=== PATIENT | male | born 1960 | race Caucasian/White ===

== ENCOUNTER 2016-10-30 09:45 | Emergency (ER) | payer MEDICAID, OTHER ==
[2016-10-30 09:49] VITALS: BP 133/77; PULSE 104; RESP 16; TEMP 97.7; O2SAT 95
[2016-10-30] MEDS ORDERED: IBUPROFEN 200 MG TAB PO ONE ×2 (10:07→10:18)
--- NOTE | 2016-10-30 10:11 | EDPHY ---
H & P Stated Complaint: leg/foot pain for 1 wk blisters Time Seen by Provider: 10/30/16 10:01 HPI/ROS: CHIEF COMPLAINT: Bilateral foot pain HISTORY OF PRESENT ILLNESS: The patient is a 56-year-old homeless alcoholic man who comes to the emergency department complaining of bilateral foot pain and blistering. He also complains of ankle swelling. He has had the symptoms for months. He states that he has been doing a lot of walking trying to find a job. He was put on a water pill by people's which has helped to some degree. He has not had any fevers. He has not suffered any trauma. He has been trying to keep his socks dry but does not have any to change. REVIEW OF SYSTEMS: Constitutional: denies: chills, fever, recent illness, recent injury EENTM: denies: blurred vision, double vision, nose congestion Respiratory: denies: cough, shortness of breath Cardiac: denies: chest pain, irregular heart rate, lightheadedness, palpitations Gastrointestinal/Abdominal: denies: abdominal pain, diarrhea, nausea, vomiting, blood streaked stools Genitourinary: denies: dysuria, frequency, hematuria, pain Musculoskeletal: denies: joint pain, muscle pain Skin: See HPI Neurological: denies: headache, numbness, paresthesia, tingling, dizziness, weakness Hematologic/Lymphatic: denies: blood clots, easy bleeding, easy bruising Immunologic/allergic: denies: HIV/AIDS, transplant EXAM: GENERAL: Well-appearing, well-nourished and in no acute distress. HEAD: Atraumatic, normocephalic. EYES: Pupils equal round and reactive to light, extraocular movements intact, sclera anicteric, conjunctiva are normal. ENT: TMs normal, nares patent, oropharynx clear without exudates. Moist mucous membranes. NECK: Normal range of motion, supple without lymphadenopathy or JVD. LUNGS: Breath sounds clear to auscultation bilaterally and equal. No wheezes rales or rhonchi. HEART: Regular rate and rhythm without murmurs, rubs or gallops. ABDOMEN: Soft, nontender, normoactive bowel sounds. No guarding, no rebound. No masses appreciated. BACK: No CVA tenderness, no spinal tenderness, step-offs or deformities EXTREMITIES: Normal range of motion, mild edema bilateral lower extremities, erythematous soles of feet with blistering, no sign of cellulitis or wound infection. NEUROLOGICAL: Cranial nerves II through XII grossly intact. Normal speech, normal gait. 5/5 strength, normal movement in all extremities, normal sensation PSYCH: Normal mood, normal affect. SKIN: Warm, dry, normal turgor, no visible rashes or lesions. Source: Patient Exam Limitations: No limitations - Personal History Current Tetanus/Diphtheria Vaccine: Yes Current Tetanus Diphtheria and Acellular Pertussis (TDAP): Yes - Medical/Surgical History Hx Asthma: No Hx Chronic Respiratory Disease: Yes Hx Diabetes: No Hx Cardiac Disease: No Hx Renal Disease: No Hx Cirrhosis: No Hx Alcoholism: Yes Hx HIV/AIDS: No Hx Splenectomy or Spleen Trauma: No Other PMH: emphysema, hep c. hernia repair, tonsillectomy, cyst removal from knee - Family History Significant Family History: Hypertension - Social History Smoking Status: Former smoker Alcohol Use: Heavy Drug Use: Marijuana Constitutional: Initial Vital Signs Temperature (C) 36.5 C 10/30/16 09:47 Heart Rate 104 H 10/30/16 09:47 Respiratory Rate 16 10/30/16 09:47 Blood Pressure 133/77 H 10/30/16 09:47 O2 Sat (%) 95 10/30/16 09:47 Allergies/Adverse Reactions: No Known Allergies Allergy (Verified 01/03/16 01:06) Home Medications: Medication Instructions Recorded Docusate Sodium [Colace 100 MG (*)] 100 mg PO TID #20 cap 10/11/15 Hydrocodone/APAP 5/325 [[place] 1 - 2 tab PO Q4-6PRN PRN #14 tab 10/11/15 5/325 (*)] Cyclobenzaprine [Flexeril 10 MG 10 mg PO TID PRN #15 tab 01/03/16 (*)] Medical Decision Making ED Course/Re-evaluation: Patient is a homeless alcoholic man with likely liver failure lower extremity edema in trench foot. He is being treated for the edema by his primary care physician. We discussed treatment for trench foot. I have given him several pairs of dry socks. I have encouraged him to rest his feet and elevate them. We discussed indications for returning. Additional verbal discharge instructions given. Differential Diagnosis: Partial list of the Differential diagnosis considered include but were not limited to; trench foot, blister, burn, liver failure, cirrhosis and although unlikely based on the history and physical exam, I also considered wound infection, abscess. I discussed these differential diagnoses and the plan with the patient as well as the usual and expected course. The patient understands that the diagnosis is provisional and that in medicine we are not always correct and that further workup is often warranted. Usual and customary warnings were given. All of the patient's questions were answered. The patient was instructed to return to the emergency department should the symptoms at all worsen or return, otherwise to followup with the physician as we discussed. - Data Points Medications Given: Discontinued Medications Ibuprofen (Motrin) 800 mg PO EDNOW ONE Stop: 10/30/16 10:08 Last Admin: 10/30/16 10:23 Dose: 800 mg Departure - Departure Disposition: Home, Routine, Self-Care Clinical Impression: Trench feet Qualifiers: Encounter type: initial encounter Laterality: unspecified laterality Qualifier Code: (T69.029A) Immersion foot, unspecified foot, initial encounter Condition: Fair Instructions: Blister (ED) Additional Instructions: Continue to change out dry socks. Attempt to do less walking and more elevation of your feet. Continue to take the fluid pills prescribed by your primary. Follow up with him in the next few days. Return here if her symptoms worsen or if he develops a fever as we discussed. Referrals: IN STATE,. [Primary Care Provider] - As per Instructions [facility] [Outside] - As per Instructions
== END 2016-10-30 10:20 | disposition home or self-care (01) ==
DX: T69.021A Immersion foot, right foot, initial encounter (principal); T69.022A Immersion foot, left foot, initial encounter; Z87.891 Personal history of nicotine dependence; X31.XXXA Exposure to excessive natural cold, initial encounter

== ENCOUNTER 2016-11-07 06:21 | Emergency (ER) | payer MEDICAID ==
[2016-11-07 06:32] VITALS: RESP 16
[2016-11-07] MEDS ORDERED: fentaNYL 100 MCG/2 ML INJ ONE (06:34)
--- NOTE | 2016-11-07 06:40 | EDPHY ---
HPI/HX/ROS/PE/MDM Narrative: Chief complaint: Abdominal pain HPI: 56-year-old male with a known umbilical hernia states that his hernia bulge out this morning and has caused him increasing pain. He has a history of having his hernia become incarcerated in the past but it has reduced on its own today he attempted to reduce with pressure but has had increasing pain. This has been going on for the last several hours. No fevers or chills. No nausea or vomiting. Has not have a history of any abdominal surgeries in the past. Has not had hernias repaired. Denies other medical history at this time. EMS gave the patient 100 mcg of fentanyl with some relief. ROS: 10 point Review of Systems is negative except as noted in the HPI. Physical exam: Gen: Awake, Alert, uncomfortable appearing HEENT: Nose: no rhinorrhea Eyes: PERRLA, EOMI Mouth: Moist mucosa Neck: Supple, no JVD Chest: nontender, lungs clear to auscultation Heart: S1, S2 normal, no murmur Abd: patient has a incarcerated umbilical hernia on physical examination, abdomen is otherwise soft, no focal guarding Back: no CVA tenderness, no midline tenderness Ext: no edema, non-tender Skin: no rash Neuro: CN II-XII intact, Sensation grossly intact, Strength 5/5 in bilateral upper and lower extremities ED Course: Patient's umbilical hernia was easily reduced under gentle constant pressure. On reexamination is abdomen is soft and benign. He has been instructed on how to reduce it should it become incarcerated again. I will also refer him to General surgery as an outpatient for consultation for hernia repair. He is otherwise a soft benign abdomen in pain resolved with reduction. General Initial Vital Signs: Initial Vital Signs Temperature (C) 37.0 C 11/07/16 06:29 Heart Rate 80 11/07/16 06:29 Respiratory Rate 16 11/07/16 06:29 Blood Pressure 142/95 H 11/07/16 06:29 O2 Sat (%) 86 L 11/07/16 06:29 O2 Delivery Mode Nasal Cannula O2 (L/minute) 2 Allergies/Adverse Reactions: No Known Allergies Allergy (Verified 01/03/16 01:06) Home Medications: Medication Instructions Recorded NK [No Known Home Meds] 11/07/16 Departure - Departure Disposition: Home, Routine, Self-Care Clinical Impression: Umbilical hernia Condition: Good Instructions: Umbilical Hernia (ED) Additional Instructions: Follow up with general surgeon in a week or so in follow-up for consultation for hernia repair. Return to the emergency department for increasing abdominal pain, nausea, vomiting, fevers, chills, or any other concerns. Referrals: IN STATE,. [Primary Care Provider] - As per Instructions Evin Reilly MD [Medical Doctor] - As per Instructions
[2016-11-07 08:52] VITALS: BP 127/87; PULSE 86; TEMP 98.1; O2SAT 92
[2016-11-09] MEDS ORDERED: MIDAZOLAM 2 MG/2 ML VIAL ONE (08:35)
== END 2016-11-07 08:50 | disposition home or self-care (01) ==
LOC: EDUNIT#
DX: K42.9 Umbilical hernia without obstruction or gangrene (principal)
CPT/HCPCS: J2250; J3010

== ENCOUNTER 2016-11-07 10:44 | Inpatient (IN) | payer MEDICAID ==
[2016-11-07] MEDS ORDERED: LR 1,000 ML IV ONE (11:42)
[2016-11-07] MEDS ORDERED: CEFAZOLIN 2 GM/DEXTROSE/100 ML BAG IV ONE (12:16)
[2016-11-07] MEDS ORDERED: ceFAZolin 2 GM/DEXTROSE 100 ML IV ONE (12:30)
--- NOTE | 2016-11-07 12:37 | GHP ---
[f rep st] PREOP HISTORY AND PHYSICAL CHIEF COMPLAINT: Umbilical hernia. HISTORY OF PRESENT ILLNESS: This patient is a 56-year-old man who presented to the emergency room this morning with a chief complaint of an incarcerated umbilical hernia with severe abdominal pain. He has had the hernia for several years. However, in June, he was helping a friend lift a heavy object and felt a rip. Since that time, the hernia has increased in size, and he has had more discomfort with it. This morning he was on the bus and the hernia was unable to be reduced and he developed severe pain. He then got off the bus and called an ambulance. In the emergency room, they were able to reduce the hernia with gentle pressure. He denies any fevers, chills, nausea, vomiting, change in bowel habits. He is passing flatus. He last ate a candy bar this morning at 4 a.m. He denies any skin changes over lying the hernia. PAST MEDICAL HISTORY: None. PAST SURGICAL HISTORY: Bilateral open inguinal hernia repairs with mesh. MEDICATIONS: Ibuprofen p.r.n. ALLERGIES: No known drug allergies. SOCIAL HISTORY: He reports occasional alcohol consumption. He chews tobacco very rarely. He denies recreational drug use. He does rign-ve-[id number] heavy lifting for work. FAMILY HISTORY: None significant. REVIEW OF SYSTEMS: A 10-point review of systems negative aside from the HPI. PHYSICAL EXAMINATION: GENERAL: Well-developed well-nourished man in no acute distress. HEENT: Normocephalic, atraumatic. No hearing deficits. Pupils equal and round. No scleral icterus. Mucous membranes moist. NECK: Trachea midline. RESPIRATORY: Clear to auscultation bilaterally. No increased work of breathing. CARDIOVASCULAR: Regular rate and rhythm. No peripheral edema. ABDOMEN: Normoactive bowel sounds throughout. Soft, nondistended. Nontender aside from directly over the umbilical hernia. There is an umbilical hernia, which is reducible when supine. It is tender to palpation. No skin changes. PSYCHIATRIC: Mood and affect normal. IMPRESSION AND PLAN: The patient is a 56-year-old man with an incarcerated umbilical hernia. We discussed open repair with mesh. We discussed risks of surgery including but not limited to heart attack, stroke, blood clots, . We discussed risk of infection, bleeding, damage to surrounding structures, or recurrence. He understands the risks and would like to proceed. He will receive Ancef on-call to the operating room. He had his questions answered to his satisfaction. Additionally seen by Dr. Kelly Loyola. I saw and examined Mr. Block. Although hernia has been present, it is tender. He is in a high risk living situation. Will admit to repair /[id number]/MODL MTDD
[2016-11-07] MEDS ORDERED: BUPIVACAINE 0.5% 30 ML SDV ONE (12:39)
[2016-11-07] MEDS ORDERED: ONDANSETRON 4 MG/2 ML VIAL IVP PRN (16:30)
[2016-11-07] MEDS ORDERED: ONDANSETRON DISINTEGRATING 4 MG TAB PO PRN (16:30)
[2016-11-07] MEDS ORDERED: ACETAMINOPHEN 325 MG TAB PO PRN (16:30)
--- NOTE | 2016-11-07 17:15 | CPEKG ---
Heart Rate: 82 RR Interval: 732 P-R Interval: 156 QRSD Interval: 78 QT Interval: 400 QTC Interval: 468 P Frederica: 48 QRS Frederica: 24 T Wave Frederica: 4 EKG Severity - BORDERLINE ECG - EKG Impression: SINUS RHYTHM EKG Impression: BORDERLINE R WAVE PROGRESSION, ANTERIOR LEADS EKG Impression: BORDERLINE T ABNORMALITIES, INFERIOR LEADS Electronically Signed By: Javier Piña 07-Nov-2016 17:42:17
--- NOTE | 2016-11-07 17:24 | GHP ---
[f rep st] HISTORY AND PHYSICAL DATE OF ADMISSION: 11/07/2016 CHIEF COMPLAINT: Abdominal pain. HISTORY OF PRESENT ILLNESS: The patient is a 56-year-old man who is followed at [facility]. He comes in to the emergency room with abdominal pain. He said that this morning at his umbilicus, tomy wilkes pooched out. He could not push it back in, and it was extremely painful so he came to the [facility] department. They were able to eventually push it back in and scheduled him to follow up at Dr. Loyola's office. She opted to bring him in for surgical repair; however, Anesthesia noted a holosyst olic murmur and wanted further evaluation prior to surgery. The patient denies any significant medical history. He said he has had a heart murmur for as long as he can remember, at least 20 or 30 years he was first told of it. He believes he had an echo in 200 6 and has not had a repeat echo. He denies any chest pain, although he does get some dyspnea on exer tion and cannot run because of it. He is able to walk 5-6 miles daily since he is homeless, and is n ot significantly limited by breathing when doing this. He denies any syncope. He does get occasiona l light-headedness and has for years; it is very infrequent. He is able to walk up a flight of stair s with his heavy backpack without any shortness of breath or chest pain. He denies any headache, vis ion, hearing, speech, or swallowing problems. He denies any urinary or bowel changes. He does get v mago occasionally lower extremity edema. He was seen in the emergency department about a week ago bec ause of this, and was felt secondary to poor foot care. REVIEW OF SYSTEMS: A 10-point review of systems was done and is negative except as stated in the HPI . PAST MEDICAL HISTORY: Heart murmur. PAST SURGICAL HISTORY: Bilateral hernia repair. MEDICATIONS: Occasional ibuprofen. ALLERGIES: No known drug allergies. SOCIAL HISTORY: He lives in a fpc at this time. He has been homeless for a couple months since he broke up with his girlfriend. He walks 5-6 miles a day because of this. He has a significant tob acco history of 35 years but quit a few years ago. He drinks 3-4 drinks/beers 3-4 times a week. FAMILY HISTORY: Parents are both ; he cannot tell me why they . PHYSICAL EXAMINATION: VITAL SIGNS: Afebrile. Heart rate 88, blood pressure 147/74, respirations 14 , and he is 93% on room air. GENERAL: He is a very pleasant 56-year-old man. He is in no distress. He is alert and oriented. Speech is clear and fluent. HEENT: Pupils equal, round, and reactive. Extraocular movements intact. Mucous membranes moist. Oropharynx clear. NECK: Supple. No adenopa thy. HEART: Regular rate and rhythm. He has a holosystolic murmur radiating to left carotid artery . LUNGS: Clear bilaterally. No wheezes or rhonchi, but diminished breath sounds throughout. ABDOM EN: Slightly protuberant. He has an umbilical hernia noted with some tenderness at the site; he is able to reduce it. EXTREMITIES: No significant pitting edema bilaterally. MUSCULOSKELETAL: No antonia nt deformities or effusions. No muscle atrophy. SKIN: No rash. NEUROLOGIC: He is intact. LABORATORY DATA: None. ASSESSMENT AND PLAN: 56-year-old man admitted for incarcerated hernia repair, found to have a signif icant murmur and needs further medical evaluation prior to surgery. 1. Heart murmur. Patient with minimal exertional symptoms, although he does have some dyspnea on ex ertion. It is unclear if this is due to his heart, but more likely due to his prolonged smoking use. Plan: Check echocardiogram, check EKG, check chest x-ray, and check baseline labs. After those st udies are done can re-evaluate the data for risk stratification. Clinically he is in relatively good shape. He could do 4 METS without symptoms. 2. Umbilical hernia, per General Surgery. Can proceed after above studies are done and reviewed. 3. Alcohol use. Patient has moderate alcohol use, drinking 3-4 beers 3-4 times a week. He denies a ny history of withdrawal symptoms. Will monitor for this. 4. History of tobacco use, at least 35 years; although, he has quit. He has been diagnosed with emp hysema in the past. Will start him on DuoNeb and check a chest x-ray. 5. Homelessness. Patient likely will be an OR followup candidate so will need to stay in the hospit al until this can be done. Copy requested to: [facility] /[id number]/MODL
[2016-11-07 17:46] LABS: % IMMATURE GRANULYOCYTES 0.3 % (0.0-1.1); ABSOLUTE IMMATURE GRANULOCYTES 0.01 10^3/uL (0.00-0.10); ADD DIFF? NO; ADD MORPH? NO; ADD SCAN? NO; ATYPICAL LYMPHOCYTE FLAG 10 (0-99); FRAGMENT RBC FLAG 0 (0-99); HEMATOCRIT 39.9 % (40.0-51.0); LEFT SHIFT FLG 0 (0-99); LIPEMIA HEMOLYSIS FLAG 90 (0-99); MEAN CELL HEMOGLOBIN 36.4 pg (27.9-34.1); MEAN CELL HEMOGLOBIN CONCENTR. 35.1 g/dL (32.4-36.7); MEAN CELL VOLUME 103.6 fL (81.5-99.8); MEAN PLATELET VOLUME 10.6 fL (8.7-11.7); PLATELET CLUMPS FLAG 0 (0-99); PLATELET COUNT 52 10^3/uL (150-400); RED BLOOD CELL COUNT 3.85 10^6/uL (4.40-6.38); RED CELL DISTRIBUTION WIDTH 14.9 % (11.5-15.2)
[2016-11-07 18:08] LABS: ALANINE AMINOTRANSFERASE 57 IU/L (21-72); ALBUMIN 3.1 g/dL (3.5-5.0); ALKALINE PHOSPHATASE 166 IU/L (38-126); ANION GAP 8 mEq/L (8-16); ASPARTATE AMINOTRANSFERASE 71 IU/L (17-59); BILIRUBIN,TOTAL 2.1 mg/dL (0.1-1.4); CALCIUM 8.2 mg/dL (8.5-10.4); CARBON DIOXIDE 24 mEq/l (22-31); CHLORIDE 108 mEq/L (97-110); CREATININE 0.6 mg/dL (0.7-1.3); GLOMERULAR FILTRATION RATE > 60; GLUCOSE 80 mg/dL (70-100); POTASSIUM 3.7 mEq/L (3.5-5.2); SODIUM 140 mEq/L (134-144); TOTAL PROTEIN 7.1 g/dL (6.3-8.2)
--- NOTE | 2016-11-07 18:28 | DX ---
PA and Lateral Chest - November 07, 2016 Clinical Indications: Heart murmur. Shortness of breath. Comparison: October 11, 2015. Findings: The lungs are clear, and no masses are found. The heart and pulmonary vessels are normal. There are no pleural effusions and no pneumothorax. The bones are unremarkable for this age. An ol d left 11th rib fracture is present. Impression: No acute cardiopulmonary process.
[2016-11-07 18:30] LABS: INR 1.48 (0.83-1.16); PROTIME(PATIENT) 17.9 SEC (12.0-15.0)
[2016-11-07 18:48] LABS: BILIRUBIN-CONJUGATED 0.8 mg/dL (0.0-0.5); BILIRUBIN-UNCONJUGATED 1.3 mg/dL (0.0-1.1)
[2016-11-07] MEDS: HYDROCODONE/APAP 5/325 TAB PO PRN (22:24)
[2016-11-07] MEDS: IPRATROPIUM/ALBUTEROL 3 ML DEYVIAL IH SCH (23:03)
[2016-11-08] MEDS: IPRATROPIUM/ALBUTEROL 3 ML DEYVIAL IH SCH ×4 (05:41→20:19)
--- NOTE | 2016-11-08 08:26 | HOSPPROG ---
Hospitalist Progress Note Assessment/Plan: #Moderate -TTE showed moderate with mean valvular stenosis AV max 49mmHg, AV mean 29mmHg -asymptomatic, no e/o volume overload or arrhythmia #Umbilical hernia -Dr. Loyola to do surgery tomorrow #Alcohol abuse: last drink Sunday. Monitor with withdrawal #Likely underlying COPD: PRN nebs #DVT px: low-risk, ambulatory #Diet: NPO at MN Subjective: No CP, SOB. Objective: Vital Signs Temp Pulse Resp BP Pulse Ox 36.9 C 100 18 135/75 H 94 11/08/16 04:00 11/08/16 04:00 11/08/16 04:00 11/08/16 04:00 11/08/16 04:00 Laboratory Results 11/07/16 17:30 11/07/16 17:30 11/07/16 11/08/16 11/09/16 05:59 05:59 05:59 Intake Total 100 Balance 100 PT 17.9 SEC (12.0-15.0) H 11/07/16 17:30 INR 1.48 (0.83-1.16) H 11/07/16 17:30 - Physical Exam Constitutional: no apparent distress Eyes: PERRL Ears, Nose, Mouth, Throat: moist mucous membranes, hearing normal Cardiovascular: regular rate and rhythym, systolic murmur (3/6 heard throughout precordium), edema (no edema) Respiratory: no respiratory distress Gastrointestinal: normoactive bowel sounds Genitourinary: no bladder fullness Skin: warm Musculoskeletal: full muscle strength Neurologic: AAOx3 ICD10 Worksheet Patient Problems: Problems Problem Status Diagnosed Aortic stenosis due to bicuspid aortic valve Acute - ICD10 Problem Qualifiers (1) Aortic stenosis due to bicuspid aortic valve
--- NOTE | 2016-11-08 10:51 | ECHO ---
[id number] + + [address] : : [place] [address] : : [phone] + + Adult Echocardiographic Report + + :Name: JOE GOODWIN MStudy Date: 11/08/2016 09:33 AM : : Hospital Admission Number: [id number] Loc ation: 379: :: 1960 Gender: Male : :Age: 56 yrs Race: WH : :Reason For Study: Heart murmur/pre op : + + MMode/2D Measurements & Calculations IVSd: 0.74 cm LVIDd: 4.7 cm FS: 48.7 % Ao root diam: LVPWd: 0.98 cm LVIDs: 2.4 cm EDV(Teich): 4.0 cm 101.4 ml LA dimension: ESV(Teich): 20.2 ml3.9 cm EF(Teich): 80.1 % LVOT diam: 2.4 cmLVLd ap4: 9.5 cm SV(MOD-sp4): LVOT area: EDV(MOD-sp4): 85.0 ml 117.0 ml 4.4 cm2 LVLs ap4: 6.9 cm ESV(MOD-sp4): 32.0 ml EF(MOD-sp4): 72.6 % Normal Measurement Values: + + :LVIDd (3.5-5.7cm) IVSd (0.6-1.1cm) LVPWd (0.6-1.1cm) Aortic Root (2.0-3.7cm)Left Atrium (1.5-4.0cm): :LV Vol(d) (76-115ml) LV Vol(s) (29-48ml) Ejec Fraction (50-65%)PV Pietro (0.6- 1.2m/s) TV Pietro (0.4-1.0m/s) : :MV E Pietro (0.8-1.0m/s)MV A Pietro (0.3-1.0m/s)LVOT Pietro (0.7-1.2m/s) Asc Ao Pietro ( 0.9-1.8m/s) : + + Doppler Measurements & Calculations MV E max pietro: Ao mean PG: LV V1 max: SV(LVOT): 93.8 cm/sec 31.9 mmHg 108.6 cm/sec 109.1 ml MV A max pietro: Ao V2 mean: LV V1 max P.1 cm/sec 272.9 cm/sec 4.7 mmHg MV E/A: 1.3 Ao V2 VTI: 82.6 cm LV V1 mean PG: FREDA(I,D): 1.3 cm2 2.7 mmHg LV V1 mean: 76.2 cm/sec LV V1 VTI: 25.0 cm TR max pietro: 278.3 cm/sec TR max P.0 mmHg RAP systole: 5.0 mmHg RVSP(TR): 36.0 mmHg Left Ventricle The left ventricle is normal in size. There is normal left ventricular wall thickness. The left ventricle is hyperdynamic. Ejection Fraction = 75-80%. No regional wall motion abnormalities noted. Right Ventricle The right ventricle is normal in size and function. Atria The left atrium is mildly dilated. Right atrial size is normal. The interatrial septum is intact with no evidence for an atrial septal defect. Mitral Valve The mitral valve is normal in structure and function. There is no evidence of mitral valve prolapse. There is no mitral valve stenosis. There is mild mitral regurgitation. Tricuspid Valve Normal tricuspid valve. There is mild tricuspid regurgitation. Right ventricular systolic pressure is normal. Aortic Valve The aortic valve is bicuspid. Moderate valvular aortic stenosis. AV max PG is 49mmHG. AV mean PG is 29mmHG. Pulmonic Valve The pulmonic valve is normal in structure and function. There is no pulmonic valvular regurgitation. Great Vessels The aortic root is normal size. Borderline dilated ascending aorta. Pericardium/Pleural There is no pericardial effusion. Conclusion A complete two-dimensional transthoracic echocardiogram was performed (2D, M-mode, Doppler and color flow Doppler). The left ventricle is hyperdynamic. Ejection Fraction = 75-80%. The left atrium is mildly dilated. There is mild mitral regurgitation. There is mild tricuspid regurgitation. Right ventricular systolic pressure is normal. The aortic valve is bicuspid. Moderate valvular aortic stenosis. AV max PG is 49mmHG. AV mean PG is 29mmHG. Borderline dilated ascending aorta. Final Reading Physician: Katy Cornell signed on 11/08/2016 10:50 AM Ordering Physician: Mitzy Gerard Performed By: Rosanne Aguilar RDCS
[2016-11-08] MEDS: HYDROCODONE/APAP 5/325 TAB PO PRN (15:14)
[2016-11-09] MEDS: IPRATROPIUM/ALBUTEROL 3 ML DEYVIAL IH SCH ×4 (05:10→21:21)
[2016-11-09 07:48] LABS: ADD DIFF? NO; ADD MORPH? NO; ADD SCAN? NO; ATYPICAL LYMPHOCYTE FLAG 30 (0-99); FRAGMENT RBC FLAG 0 (0-99); HEMATOCRIT 37.4 % (40.0-51.0); LEFT SHIFT FLG 0 (0-99); LIPEMIA HEMOLYSIS FLAG 90 (0-99); MEAN CELL HEMOGLOBIN 36.1 pg (27.9-34.1); MEAN CELL HEMOGLOBIN CONCENTR. 34.8 g/dL (32.4-36.7); MEAN CELL VOLUME 103.9 fL (81.5-99.8); PLATELET CLUMPS FLAG 0 (0-99); RED CELL DISTRIBUTION WIDTH 14.9 % (11.5-15.2)
[2016-11-09 07:51] LABS: PLATELET COUNT 44 10^3/uL (150-400)
[2016-11-09] MEDS ORDERED: BUPIVACAINE 0.5% 30 ML SDV ONE (07:57)
[2016-11-09 08:00] LABS: INR 1.47 (0.83-1.16); PROTIME(PATIENT) 17.8 SEC (12.0-15.0)
[2016-11-09] MEDS ORDERED: ceFAZolin 2 GM in NS 100 ML IV ONE (08:00)
[2016-11-09] MEDS ORDERED: ceFAZolin 2 GM/DEXTROSE 100 ML IV ONE (08:00)
[2016-11-09 08:02] LABS: ALANINE AMINOTRANSFERASE 52 IU/L (21-72); ALBUMIN 2.7 g/dL (3.5-5.0); ALKALINE PHOSPHATASE 145 IU/L (38-126); ANION GAP 7 mEq/L (8-16); ASPARTATE AMINOTRANSFERASE 61 IU/L (17-59); BILIRUBIN,TOTAL 1.8 mg/dL (0.1-1.4); BILIRUBIN-CONJUGATED 0.5 mg/dL (0.0-0.5); BILIRUBIN-UNCONJUGATED 1.3 mg/dL (0.0-1.1); CALCIUM 8.1 mg/dL (8.5-10.4); CARBON DIOXIDE 23 mEq/l (22-31); CHLORIDE 108 mEq/L (97-110); CREATININE 0.7 mg/dL (0.7-1.3); GLOMERULAR FILTRATION RATE > 60; GLUCOSE 97 mg/dL (70-100); POTASSIUM 3.9 mEq/L (3.5-5.2); SODIUM 138 mEq/L (134-144); TOTAL PROTEIN 6.4 g/dL (6.3-8.2)
[2016-11-09 08:34] LABS: PLATELET ESTIMATE DECREASED (ADEQ)
[2016-11-09] MEDS ORDERED: PROPOFOL 200 MG/20 ML VIAL ONE (08:42)
[2016-11-09] MEDS ORDERED: fentaNYL 100 MCG/2 ML INJ ONE ×2 (08:42→09:08)
[2016-11-09] MEDS ORDERED: LIDOCAINE 1% 5 ML SDV ONE (08:45)
[2016-11-09] MEDS ORDERED: LIDOCAINE 2% 5 ML SDV ONE (08:49)
[2016-11-09] MEDS ORDERED: GLYCOPYRROLATE 0.2 MG/1 ML VIAL ONE (08:51)
[2016-11-09] MEDS ORDERED: METOCLOPRAMIDE 10 MG/2 ML VIAL ONE (08:51)
[2016-11-09] MEDS ORDERED: PHENYLEPHRINE HCL 100 MCG/ML SYR ONE (09:02)
[2016-11-09] MEDS ORDERED: ONDANSETRON 4 MG/2 ML VIAL ONE (09:10)
[2016-11-09] MEDS ORDERED: DEXAMETHASONE 4 MG/ML VIAL ONE (09:10)
[2016-11-09] MEDS ORDERED: HYDROmorphONE/DILAUDID 2 MG/ML SYR ONE (09:14)
--- NOTE | 2016-11-09 09:36 | POSTOPPROG ---
Post Op Note Date of Operation: 11/09/16 Surgeon: Kelly Loyola Anesthesiologist: robina Anesthesia: GET(General Endotracheal) Pre-op Diagnosis: incarcerated umbilical hernia Post-op Diagnosis: same Indication: 56 yo with incarcerated umbilical hernia Procedure: umbilical hernia repair with mesh Findings: incarcerated omentum Inf/Abcess present in the surg proc area at time of surgery?: No EBL: Minimal Specimen(s): none
--- NOTE | 2016-11-09 11:30 | GOP ---
[f rep st] OPERATIVE REPORT DATE OF OPERATION: 11/09/2016 SURGEON: Kelly Loyola MD ANESTHESIA: Dr. Boone Baptiste/general. PREOPERATIVE DIAGNOSIS: Incarcerated umbilical hernia. POSTOPERATIVE DIAGNOSIS: Incarcerated umbilical hernia. PROCEDURE PERFORMED: Umbilical hernia repair with mesh. FINDINGS: incarcerated umbilical hernia SPECIMENS: None. ESTIMATED BLOOD LOSS: 10 cc. INDICATIONS: Panda is a 56-year-old who presented with an umbilical hernia. DESCRIPTION OF PROCEDURE: Panda was brought into the operating room, placed supine on the table, and general anesthesia was administered. His abdomen was prepped and draped in the usual sterile fashion. I infiltrated the area with 0.5% Marcaine prior to making incisions. I made an incision beneath his umbilicus. I came around the umbilical stalk with a hemostat. I detached it from the fascia with electrocautery. I reduced the incarcerated omentum back into the peritoneal cavity. I sutured the defect closed which was approximately 2 cm with 0 Surgilon. I placed a piece of Procrit mesh and tacked this down with 0 Surgilon. Neoumbilicus was recreated with 3-0 Vicryl. Skin was closed with 3-0 Vicryl, followed by 4-0 Monocryl. Mastisol, Steri- Strips, cotton ball, and a dressing were applied. He was awakened in the operating room, extubated, transferred to PACU in stable condition. /[id number]/MODL MTDD
--- NOTE | 2016-11-09 13:07 | HOSPPROG ---
Hospitalist Progress Note Assessment/Plan: #Moderate -TTE showed moderate with mean valvular stenosis AV max 49mmHg, AV mean 29mmHg -asymptomatic, no e/o volume overload or arrhythmia. -did well with the surgery #Umbilical hernia -underwent umbilical repair with mesh today without complications #Alcohol abuse: last drink Sunday. Monitor with withdrawal #Likely underlying COPD: PRN nebs #DVT px: low-risk, ambulatory #Diet: ADAT #Disp: if doing well, likely DC tomorrow Subjective: abdomen pain much improved after the surgery Objective: Vital Signs Temp Pulse Resp BP Pulse Ox 36.6 C 96 16 103/73 90 L 11/09/16 12:00 11/09/16 12:00 11/09/16 12:00 11/09/16 12:00 11/09/16 12:00 Laboratory Results 11/09/16 07:41 11/09/16 07:41 11/08/16 11/09/16 11/10/16 05:59 05:59 05:59 Intake Total 431 045 6472 Output Total 10 Balance 894 174 6361 PT 17.8 SEC (12.0-15.0) H 11/09/16 07:41 INR 1.47 (0.83-1.16) H 11/09/16 07:41 - Physical Exam Constitutional: no apparent distress Eyes: PERRL Ears, Nose, Mouth, Throat: moist mucous membranes, hearing normal Cardiovascular: regular rate and rhythym, no murmur, rub, or gallop Respiratory: no respiratory distress, no rales or rhonchi Gastrointestinal: normoactive bowel sounds, other (umbilicus dressed C/D/I. No TTP. +BS) Musculoskeletal: full muscle strength Neurologic: AAOx3 Psychiatric: interacting appropriately ICD10 Worksheet Patient Problems: Problems Problem Status Diagnosed Aortic stenosis due to bicuspid aortic valve Acute - ICD10 Problem Qualifiers (1) Aortic stenosis due to bicuspid aortic valve
[2016-11-09 22:59] VITALS: RESP 18
[2016-11-10 04:43] VITALS: O2SAT 90
[2016-11-10] MEDS: IPRATROPIUM/ALBUTEROL 3 ML DEYVIAL IH SCH ×2 (05:51→10:57)
[2016-11-10 08:19] VITALS: BP 128/83; PULSE 101; TEMP 98.1
[2016-11-10] MEDS: HYDROCODONE/APAP 5/325 TAB PO PRN (08:48)
--- NOTE | 2016-11-10 09:11 | SOAPPROG ---
SOAP Progress Note Assessment/Plan: Assessment: POD#1 s/p umbilical hernia repair with mesh Increased pain this morning but had not received PO pain meds OK to shower today Regular diet Dispo: d/c to [facility] per hospitalists. OK to go from surgery standpoint. F/u 2 weeks S: increased pain this morning. eating well. O: laying in bed, NAD No increased WOB Abd soft, nondistended, +BS. minimal erythema superior to umbilicus, tender to palpation at site of surgery NO evidence of active infection Objective: Vital Signs Temp Pulse Resp BP Pulse Ox 36.7 C 101 H 18 128/83 H 90 L 11/10/16 08:00 11/10/16 08:00 11/10/16 08:00 11/10/16 08:00 11/10/16 08:00 Laboratory Results 11/09/16 07:41 11/09/16 07:41 11/09/16 11/10/16 11/11/16 05:59 05:59 05:59 Intake Total 600 1100 Output Total 10 Balance 600 1090 PT 17.8 SEC (12.0-15.0) H 11/09/16 07:41 INR 1.47 (0.83-1.16) H 11/09/16 07:41 ICD10 Worksheet Patient Problems: Problems Problem Status Diagnosed Aortic stenosis due to bicuspid aortic valve Acute
[2016-11-10] MEDS ORDERED: PNEUMOCOCCAL 0.5ML VACCINE VIAL IM ONE (11:30)
[2016-11-10] MEDS ORDERED: FLU VACC QS 2016-17(3-64YR)/PF 0.5 ML SYR (FLUARIX QUAD) IM ONE (11:30)
--- NOTE | 2016-11-11 03:26 | GDS ---
[f rep st] DISCHARGE SUMMARY DISCHARGE DIAGNOSIS: Moderate aortic stenosis. NEW DIAGNOSES: 1. Suspected emphysema secondary to smoking. 2. Umbilical hernia status post repair. 3. Alcohol abuse without withdrawal. 4. Homelessness. HISTORY OF PRESENT ILLNESS: This is a 56-year-old male presenting for surgery to his inguinal hernia found to have a murmur and admitted for evaluation and surgical intervention. For details of mark salas's initial presentation, please see the history and physical dated 11/07/2016. Consultative services include Dr. Smith. PROCEDURES: On 11/09/2016 patient had umbilical hernia repair. On 11/07/2016 patient had a transtho racic echocardiogram, which shows a bicuspid aortic valve with moderate aortic stenosis. HOSPITAL COURSE: 1. Incarcerated inguinal hernia. Patient was brought and cleared for surgery and taken to the opera ting room successfully. The patient has minimal pain on the day of disposition and is being provided oral pain medications to follow with Dr. Smith in the next 7-10 days. 2. Suspected COPD. Patient has an extensive smoking history, and required intermittent oxygen durin g his hospital stays, being discharged with Combivent inhaler and outpatient followup with [facility]. 3. Moderate aortic stenosis. The patient had his valves visualized on transthoracic echocardiogram. We recommend that he have non-emergent followup at [facility] for long-term management of his va lvular disease. DISCHARGE MEDICATIONS: Please reference medication reconciliation printed on 11/10/2016. FOLLOWUP: 1. Followup appointments for this patient include with Dr. Smith in 7-10 days for postop followup. 2. With [facility] for ongoing management of his suspected emphysema. 3. With [facility]. Long-term for monitoring of his moderate aortic stenosis. I spent greater than 30 minutes in the planning and coordination of this discharge. /[id number]/MODL
== END 2016-11-10 13:47 | disposition home or self-care (01) | DRG 354 ==
LOC: FSGY 10:44 → F3E 14:03 → OBSVTOIN 16:32
PROVIDERS: ADMIT Internal Medicine; ATTEND Internal Medicine
PROC: 0WUF0JZ Supplement Abdominal Wall with Synthetic Substitute, Open Approach (ICD-10-PCS; principal; 2016-11-09 08:30)
DX: K42.9 Umbilical hernia without obstruction or gangrene (principal); F10.239 Alcohol dependence with withdrawal, unspecified; R01.1 Cardiac murmur, unspecified; J43.9 Emphysema, unspecified; I35.0 Nonrheumatic aortic (valve) stenosis; Z87.891 Personal history of nicotine dependence; Z23 Encounter for immunization; Z66 Do not resuscitate
CPT/HCPCS: C1781; G0008; G0009; J0690; J1100; J1170; J2250; J2370; J2405; J2704; J2765; J3010

== ENCOUNTER 2016-12-06 17:48 | Emergency (ER) | payer MEDICAID ==
--- NOTE | 2016-12-06 18:08 | EDPHY ---
H & P - Medical/Surgical History Hx Asthma: No Hx Chronic Respiratory Disease: Yes Hx Diabetes: No Hx Cardiac Disease: Yes Hx Renal Disease: No Hx Cirrhosis: No Hx Alcoholism: Yes Hx HIV/AIDS: No Hx Splenectomy or Spleen Trauma: No Other PMH: emphysema, hep c, heart murmur (to be seen by [facility]), hernia repair, tonsillectomy, cyst removal from knee - Social History Smoking Status: Current some day smoker Time Seen by Provider: 12/06/16 17:53 HPI/ROS: CHIEF COMPLAINT: Suicidal and homicidal ideation HISTORY OF PRESENT ILLNESS: 56-year-old male arrives via ambulance after being placed on an M1 hold by the mental health prosthetic makeup designer [facility] after he endorsed suicidal ideation and homicidal ideations . Per the M1 report , he called the state crisis line stated if he had a gun he would kill his ex- and her boyfriend and also door suicidal ideation. In talking to the patient he states I was just kidding. He denies alcohol or drug use. He denies suicidal homicidal ideation when I interview him. Denies acute injury or complaints of pain. Denies abdominal pain. Denies dyspnea. Denies chest pain. REVIEW OF SYSTEMS: A ten point review of systems was performed and is negative with the exception of the items mentioned in the HPI PAST MEDICAL & SURGICAL HISTORY: History of emphysema. SOCIAL HISTORY: homeless PHYSICAL EXAM (Prior to examination, patient consented to physical exam, hands were washed and my usual and customary physical exam procedures followed) 1) GENERAL: alert and oriented. agitated 2) HEAD: Normocephalic, atraumatic 3) HEENT: Pupils equal, round, reactive to light bilaterally. Sclera anicteric. 4) NECK: Full range of motion, no meningeal signs. 5) LUNGS: Clear auscultation bilaterally, no wheezes, no rhonchi, no retractions. 6) HEART: Regular rate and rhythm, no murmur, no heave, no gallop. 7) ABDOMEN: No guarding, no rebound, no focal tendernes, 8) MUSCULOSKELETAL: no signs of trauma or injury No peripheral edema or discoloration. 9) BACK: No CVA tenderness,. 10) SKIN: No rash, no petechiae. 11) Psychiatric: Patient is oriented X 3, he is agitated DIFFERENTIAL DIAGNOSIS: in no particular include but limited to depression, suicidal ideation, homicidal ideation (Abhishek Ballard) Constitutional: Initial Vital Signs Temperature (C) 36.6 C 12/06/16 17:53 Heart Rate 103 H 12/06/16 17:53 Respiratory Rate 18 12/06/16 17:53 Blood Pressure 140/93 H 12/06/16 17:53 O2 Sat (%) 96 12/06/16 17:53 O2 Delivery Mode Room Air Allergies/Adverse Reactions: No Known Allergies Allergy (Verified 01/03/16 01:06) Home Medications: Medication Instructions Recorded Ibuprofen [Motrin (*)] 200 mg PO DAILY PRN 11/07/16 Hydrocodone/APAP 5/325 [[place] 1 - 2 tab PO Q4HRS PRN #30 tab 11/10/16 5/325 (*)] Ipratropium/Albuterol [Combivent 1 inh IH QID #1 mdi 11/10/16 Respimat Inhal [place](*)] Medical Decision Making ED Course/Re-evaluation: 11:45 p.m.: Re-evaluation with serial exams. breathalyzer lcohol is 108 at this time. care the patient turned over to . Patient will need to sober further until can be evaluated by mental health prosthetic makeup designer for his prior suicidal and homicidal statements. (Abhishek Ballard Agnes) 6:45 a.m.- The patient has remained stable throughout my shift. His his repeat breathalyzer was 0.03. He is now medically clear. He should be monitored for alcohol withdrawal. The case will be signed out to the oncoming provider Dr. Figueroa pending mental health evaluation. (Sara Mcgee) 0700 Care assumed by me from Dr. Mcgee pending MH evaluation. 1200 patient has been seen by the mental health evaluations. Patient is now sober. He is not suicidal. He is not homicidal. He is genevieve for safety. He agrees with the plan to follow up with [facility] as an outpatient. Mental health hold has been lifted by me at 11:59 a.m.. Patient will be discharged per the mental health plan. (González Figueroa) - Data Points Laboratory Results: Laboratory Results 12/06/16 18:38 12/06/16 18:38 Departure - Departure Disposition: Home, Routine, Self-Care Clinical Impression: Suicidal ideation Alcoholic intoxication Qualifiers: Complication of substance-induced condition: uncomplicated Qualifier Code: ( F10.120) Alcohol abuse with intoxication, uncomplicated Condition: Good Instructions: Alcohol Intoxication (ED), Depression (ED) Additional Instructions: Follow up with [facility] for further care for her depression. Return emergency department for increasing suicidal thoughts, worsening depression, hallucinations, or any other concerns. Referrals: IN STATE,. [Primary Care Provider] - As per Instructions [facility] [Outside] - As per Instructions
[2016-12-06 18:48] LABS: % IMMATURE GRANULYOCYTES 0.2 % (0.0-1.1); ABSOLUTE IMMATURE GRANULOCYTES 0.01 10^3/uL (0.00-0.10); ADD DIFF? NO; ADD MORPH? NO; ADD SCAN? NO; ATYPICAL LYMPHOCYTE FLAG 20 (0-99); FRAGMENT RBC FLAG 0 (0-99); HEMATOCRIT 43.1 % (40.0-51.0); HEMOGLOBIN 15.3 g/dL (13.7-17.5); LEFT SHIFT FLG 0 (0-99); LIPEMIA HEMOLYSIS FLAG 90 (0-99); MEAN CELL HEMOGLOBIN 35.3 pg (27.9-34.1); MEAN CELL HEMOGLOBIN CONCENTR. 35.5 g/dL (32.4-36.7); MEAN CELL VOLUME 99.3 fL (81.5-99.8); MEAN PLATELET VOLUME 11.2 fL (8.7-11.7); PLATELET CLUMPS FLAG 10 (0-99); RED BLOOD CELL COUNT 4.34 10^6/uL (4.40-6.38)
[2016-12-06 18:55] LABS: PLATELET COUNT 45 10^3/uL (150-400)
[2016-12-06 19:10] LABS: PLATELET ESTIMATE DECREASED (ADEQ)
[2016-12-06 19:13] LABS: ANION GAP 12 mEq/L (8-16); CALCIUM 8.2 mg/dL (8.5-10.4); CARBON DIOXIDE 24 mEq/l (22-31); CHLORIDE 108 mEq/L (97-110); CREATININE 0.6 mg/dL (0.7-1.3); ETHANOL SERUM 212 mg/dL (0-10); GLOMERULAR FILTRATION RATE > 60; GLUCOSE 111 mg/dL (70-100); POTASSIUM 3.5 mEq/L (3.5-5.2); SODIUM 144 mEq/L (134-144)
[2016-12-07 00:37] VITALS: RESP 16
[2016-12-07] MEDS ORDERED: SODIUM CL NASAL 45 ML BTL EACHNARE PRN (07:46)
[2016-12-07 12:27] VITALS: BP 122/79; PULSE 70; TEMP 97.9; O2SAT 96
== END 2016-12-07 12:26 | disposition home or self-care (01) ==
LOC: EDUNIT#
DX: R45.851 Suicidal ideations (principal); F10.120 Alcohol abuse with intoxication, uncomplicated; F17.200 Nicotine dependence, unspecified, uncomplicated
CPT/HCPCS: 80305; G0480

== ENCOUNTER 2017-02-25 17:10 | Emergency (ER) | payer MEDICAID ==
[2017-02-25 17:17] VITALS: RESP 16
--- NOTE | 2017-02-25 17:21 | EDPHY ---
H & P Smoking Status: Current some day smoker Time Seen by Provider: 02/25/17 17:18 HPI/ROS: CHIEF COMPLAINT: Mechanical fall, right hip pain HISTORY OF PRESENT ILLNESS: 56-year-old male presents to the emergency department by ambulance complaining of isolated pain in his right hip. Patient states just prior to arrival he was walking outside and tripped on the curb and fell on his right lateral hip. He did not hit his head or lose consciousness. He denies abdominal pain. Denies headache. Complains of isolated pain to the right hip. He did try to get up to walk and he had pain associated with this. Denies symptoms in the left hip. Denies pain in his right knee or right ankle. REVIEW OF SYSTEMS: Constitutional: No fever, no chills. Eyes: No double or blurry vision. ENT: No sore throat. Respiratory: No cough, no shortness of breath. Cardiac: No chest pain. Gastrointestinal: No abdominal pain, vomiting or diarrhea. Genitourinary: No dysuria. Musculoskeletal: No neck or back pain. Skin: No rashes. Neurological: No headache. (Laila Bedoya) Past Medical/Surgical History: Alcoholism, hepatitis-C, cirrhosis, ascites with recent paracentesis 3 weeks ago , chews tobacco, COPD (Laila Bedoya) Social History: Single, homeless (Laila Bedoya) Physical Exam: General Appearance: Alert, no distress. No visible signs of trauma to his head. Mentating normally and answering questions appropriately. Eyes: Pupils equal and round. Extraocular motions are all intact. ENT: Mouth: Mucous membranes moist. Respiratory: No wheezing, rhonchi, or rales, lungs are clear to auscultation. Cardiovascular: Regular rate and rhythm. Gastrointestinal: Abdomen is soft and distended. Patient has chronic ascites. Nontender to palpate. No palpable masses. No CVA tenderness bilaterally. Neurological: Alert and oriented x 3, cranial nerves II through XII grossly intact Skin: Warm and dry, no rashes. Musculoskeletal: Nontender to palpate along the cervical, thoracic or lumbar spine. Neck is supple. Extremities: Patient has reproducible pain with palpation to the lateral aspect of the right hip. No palpable crepitus or other bony abnormality. He has no pain with internal or external rotation of the hip. He is able to lift his right leg off the bed, however this does cause some mild pain. He is able to flex his right knee. No abrasion. No puncture wound. Nontender to palpate the right knee or right ankle. Psychiatric: Patient is oriented X 3, there is no agitation. (Laila Bedoya) Constitutional: Initial Vital Signs Temperature (C) 36.8 C 02/25/17 17:15 Heart Rate 98 02/25/17 17:15 Respiratory Rate 16 02/25/17 17:15 Blood Pressure 139/86 H 02/25/17 17:15 O2 Sat (%) 90 L 02/25/17 17:15 O2 Delivery Mode Room Air Allergies/Adverse Reactions: No Known Allergies Allergy (Verified 01/03/16 01:06) Home Medications: Medication Instructions Recorded NK [No Known Home Meds] 02/25/17 Medical Decision Making - Diagnostics Imaging: I viewed and interpreted images myself - Diagnostics Imaging Results: X-rays of the right hip and pelvis reveal no fractures. This is reviewed by myself the PAC system. Radiology interpretation to follow. (Laila Bedoya) ED Course/Re-evaluation: 56-year-old male presents to the emergency department with right hip pain after mechanical fall. The patient has a history of alcoholism, hepatitis-C, cirrhosis and ascites. He had a paracentesis 3 weeks ago. Patient denies abdominal pain. He has no pain with palpation. X-rays of the right hip reveal no fractures. The patient was able to ambulate with out assistance. Patient has ETOH breath of 235. He will be discharged to the addiction recovery [facility]. (Laila Bedoya) Differential Diagnosis: Including but not limited to fracture, dislocation, contusion, sprain (Laila Bedoya) Other Provider: PHYSICIAN DOCUMENTATION: The patient was evaluated and managed by the Physician Sales Inspector and myself. I have reviewed the chart and agree with the findings and plan of care as documented. In addition, I examined the patient myself at 1753. History confirmed as fall today with right hip injury. Physical findings as follows: No pain with axial loading or rotation of the right hip. I am the secondary supervising physician. (Alexander Goode) - Data Points Medications Given: Discontinued Medications Chlordiazepoxide (Librium 25 Mg Prepack#6) 1 btl TAKEHOME EDNOW ONE Stop: 02/25/17 17:55 Last Admin: 02/25/17 18:01 Dose: 1 btl Departure - Departure Disposition: Home, Routine, Self-Care Clinical Impression: Contusion of right hip Qualifiers: Encounter type: initial encounter Qualified Code(s): S70.01XA - Contusion of right hip, initial encounter Alcohol intoxication Qualifiers: Complication of substance-induced condition: uncomplicated Qualified Code(s): F10.120 - Alcohol abuse with intoxication, uncomplicated Condition: Good Instructions: Chlordiazepoxide (By mouth), Alcohol Intoxication (ED), Hip Contusion (ED) Additional Instructions: Weightbear and activity as tolerated. Ibuprofen 400mg every 8 hours for pain as directed for 2-3 days. Return if you develop numbness or tingling in your toes, increasing pain or any other concerns. Referrals: [facility] [Outside] - As per Instructions Dusty Askew MD [Medical Doctor] - 5-7 days, call for appt. (Orthopedic surgeon on-call)
[2017-02-25] MEDS ORDERED: CHLORDIAZEPOXIDE 25MG PREPK#6 BTL TAKEHOME ONE (17:54)
[2017-02-25 18:20] VITALS: BP 133/77; PULSE 70; TEMP 97.9; O2SAT 96
== END 2017-02-25 18:17 | disposition home or self-care (01) ==
LOC: EDUNIT#
DX: S70.01XA Contusion of right hip, initial encounter (principal); F10.120 Alcohol abuse with intoxication, uncomplicated; J44.9 Chronic obstructive pulmonary disease, unspecified; F17.200 Nicotine dependence, unspecified, uncomplicated; W01.0XXA Fall on same level from slipping, tripping and stumbling without subsequent striking against object, initial encounter; Y99.8 Other external cause status; Y93.01 Activity, walking, marching and hiking

== ENCOUNTER 2017-03-09 13:14 | Emergency (ER) | payer MEDICAID ==
--- NOTE | 2017-03-09 13:37 | EDPHY ---
H & P Time Seen by Provider: 03/09/17 13:24 HPI/ROS: CHIEF COMPLAINT: Knee pain HISTORY OF PRESENT ILLNESS: This is a 56-year-old gentleman that was sent to the emergency department by the [facility] for right knee pain. Patient states he is there voluntarily, tripped last night landing on his right knee patient reports increased pain with ambulation. Denies any other complaints. Tetanus up-to- date November 2016. Patient [facility] for [facility] withdrawal, denies any withdrawal symptoms at this time, last drink 24 oz beer was 1 hour ago his normal intake of alcohol is 12-24 beers daily. REVIEW OF SYSTEMS: Constitutional: No fever, no chills. Eyes: No discharge. ENT: No sore throat. Cardiovascular: No chest pain, no palpitations. Respiratory: No cough, no shortness of breath. Gastrointestinal: No abdominal pain, no vomiting, no vomiting Genitourinary: No hematuria. Musculoskeletal: No back pain. right knee pain Skin: No rashes. Neurological: No headache. Smoking Status: Current some day smoker Physical Exam: General Appearance: Alert, no distress. Eyes: Pupils equal and round no pallor or injection. ENT, Mouth: Mucous membranes moist. Respiratory: There are no retractions, lungs are clear to auscultation. Cardiovascular: Regular rate and rhythm. Gastrointestinal: Abdomen is soft and nontender, no masses, bowel sounds normal. Neurological: No focal deficits. Ambulatory with steady gait Skin: Warm and dry, no rashes. Musculoskeletal: Neck is supple nontender. Abrasion noted to right knee, tender on palpation with some swelling, tenderness with range of full range of motion. No obvious deformity noted Extremities: symmetrical, full range of motion. Non tremulous and no fasciculations Psychiatric: Patient is oriented X 3, there is no agitation. Constitutional: Initial Vital Signs Temperature (C) 36.4 C 03/09/17 13:19 Heart Rate 95 03/09/17 13:19 Respiratory Rate 20 03/09/17 13:19 Blood Pressure 123/82 H 03/09/17 13:19 O2 Sat (%) 94 03/09/17 13:19 O2 Delivery Mode Room Air Allergies/Adverse Reactions: No Known Allergies Allergy (Verified 03/09/17 13:18) Home Medications: Medication Instructions Recorded Lasix 03/09/17 Spironolactone 03/09/17 Medical Decision Making - Diagnostics Imaging Results: Imaging Impressions Knee X-Ray 03/09/17 13:37 Impression: Soft tissue swelling. No acute fracture or effusion. ED Course/Re-evaluation: Discussed the plan of care: X-ray of right knee, wound irrigation 1430: No acute fracture seen on x-ray. Discussed results with patient. Patient discharged back to the [facility] with Librium. Stable Differential Diagnosis: Other differential diagnosis considered but not limited to patellar fracture, patellar dislocation and laceration - Data Points Medications Given: Discontinued Medications Chlordiazepoxide (Librium 25 Mg Prepack#6) 1 btl TAKEHOME EDNOW ONE Stop: 03/09/17 14:40 Last Admin: 03/09/17 14:58 Dose: 1 btl Departure - Departure Disposition: Home, Routine, Self-Care Clinical Impression: Knee pain Qualifiers: Laterality: right Chronicity: acute Qualified Code(s): M25.561 - Pain in right knee Condition: Good Instructions: Abrasion (ED), Knee Pain (ED) Additional Instructions: Discussed discharge instructions 1. The keep wound clean and dry 2. Librium has been sent with patien. Patient back to [facility] Referrals: Gloria Goddard PA [Primary Care Provider] - As per Instructions
[2017-03-09] MEDS ORDERED: CHLORDIAZEPOXIDE 25MG PREPK#6 BTL TAKEHOME ONE (14:39)
[2017-03-09 14:58] VITALS: BP 128/78; PULSE 70; RESP 14; TEMP 98.4; O2SAT 96
== END 2017-03-09 14:58 | disposition home or self-care (01) ==
DX: M25.561 Pain in right knee (principal); F17.200 Nicotine dependence, unspecified, uncomplicated

== ENCOUNTER 2017-06-14 11:48 | Inpatient (IN) | payer MEDICAID ==
--- NOTE | 2017-06-14 12:50 | EDPHY ---
HPI/HX/ROS/PE/MDM Narrative: CHIEF COMPLAINT: Chest pain, Dyspnea HPI: The patient is a 56-year-old male who complains of dyspnea and chest pain that started this morning. The patient reports a tight sensation in his chest. He is having difficulty with deep inhalation. Patient has a history of pneumonia and states symptoms feel similar. He denies cough or fever. REVIEW OF SYSTEMS: Aside from elements discussed in the HPI, a comprehensive 10-point review of systems was reviewed and is negative. PMH: Emphysema, Hepatitis C, Heart murmur, Hernia repair, Trench foot, Pneumonia. SOCIAL HISTORY: Cigarette smoker. Heavy alcohol use. Homeless. PHYSICAL EXAM: General: Patient is alert, in no acute distress. ENT: Eyes are normal to inspection. ENT inspection normal. Neck: Normal inspection. Full range of motion. Respiratory: No respiratory distress. Breath sounds normal bilaterally. Cardiovascular: Regular rate and rhythm. Strong peripheral pulses. 4/6 systolic murmur. Abdomen: The abdomen is nontender to palpation. There are no peritoneal signs. There are normal bowel sounds. Back: Normal to inspection. No tenderness to palpation. Skin: Normal color. No rash. Warm and dry. Extremities: Normal appearance. Full range of motion. 1+ pedal edema bilaterally. Neuro: Oriented x3. Normal motor function. Normal sensory function. ED Course: Patient presents with chest pain and shortness of breath. The patient has pneumonia 4 weeks ago and was hospitalized at [place]. His chest x-ray today shows left sided pneumonia. Patient is slightly hypoxic. 1:30 p.m.: I spoke to the hospitalist, Dr. Oliveira, who accepts the patient for admission. MDM: This patient presents with signs and symptoms of PNA, confirmed by CXR. Given patient's homeless status, hypoxia and recent inpatient stay for pneumonia only one month ago, I think the patient would benefit from an observation admit and IV antibiotics. The patient has a normal lactate, so I see no signs of septic shock or severe sepsis at this point. - Data Points Imaging Results: Imaging Impressions Chest X-Ray 06/14/17 11:56 Impression: Left lower lung pneumonia. Imaging: Discussed imaging studies w/ train caller Radiologist, I viewed and interpreted images myself Laboratory Results: Laboratory Results 06/14/17 11:45 06/14/17 11:45 06/14/17 06/14/17 11:45 11:45 WBC 2.97 10^3/uL L 10^3/uL (3.80-9.50) RBC 3.69 10^6/uL L 10^6/uL (4.40-6.38) Hgb 13.1 g/dL L g/dL (13.7-17.5) Hct 37.6 % L % (40.0-51.0) MCV 101.9 fL H fL (81.5-99.8) MCH 35.5 pg H pg (27.9-34.1) MCHC 34.8 g/dL g/dL (32.4-36.7) RDW 14.0 % % (11.5-15.2) Plt Count 35 10^3/uL L 10^3/uL (150-400) MPV 10.9 fL fL (8.7-11.7) Neut % (Auto) 61.7 % % (39.3-74.2) Lymph % (Auto) 26.6 % % (15.0-45.0) Mcminn % (Auto) 8.4 % % (4.5-13.0) Eos % (Auto) 2.0 % % (0.6-7.6) Baso % (Auto) 1.0 % % (0.3-1.7) Nucleat RBC Rel Count 0.0 % % (0.0-0.2) Absolute Neuts (auto) 1.83 10^3/uL 10^3/uL (1.70-6.50) Absolute Lymphs (auto) 0.79 10^3/uL L 10^3/uL (1.00-3.00) Absolute Monos (auto) 0.25 10^3/uL L 10^3/uL (0.30-0.80) Absolute Eos (auto) 0.06 10^3/uL 10^3/uL (0.03-0.40) Absolute Basos (auto) 0.03 10^3/uL 10^3/uL (0.02-0.10) Absolute Nucleated RBC 0.00 10^3/uL 10^3/uL (0-0.01) Immature Gran % 0.3 % % (0.0-1.1) Immature Gran # 0.01 10^3/uL 10^3/uL (0.00-0.10) Platelet Estimate DECREASED L (ADEQ) Sodium 144 mEq/L mEq/L (134-144) Potassium 3.6 mEq/L mEq/L (3.5-5.2) Chloride 109 mEq/L mEq/L (97-110) Carbon Dioxide 24 mEq/l mEq/l (22-31) Anion Gap 11 mEq/L mEq/L (8-16) BUN 6 mg/dL L mg/dL (7-23) Creatinine 0.6 mg/dL L mg/dL (0.7-1.3) Estimated GFR > 60 Glucose 85 mg/dL mg/dL (70-100) Calcium 8.0 mg/dL L mg/dL (8.5-10.4) Total Bilirubin 1.9 mg/dL H mg/dL (0.1-1.4) AST 116 IU/L H IU/L (17-59) ALT 58 IU/L IU/L (21-72) Alkaline Phosphatase 148 IU/L H IU/L (38-126) Total Protein 7.2 g/dL g/dL (6.3-8.2) Albumin 3.2 g/dL L g/dL (3.5-5.0) Medications Given: Discontinued Medications Ceftriaxone Sodium/Dextrose (Rocephin 1 Gm (Premix)) 50 mls @ 100 mls/hr IV EDNOW ONE PRN Reason: Protocol Stop: 06/14/17 14:10 Last Admin: 06/14/17 14:29 Dose: 50 mls General Time Seen by Provider: 06/14/17 12:39 Initial Vital Signs: Initial Vital Signs Temperature (C) 36.7 C 06/14/17 11:57 Heart Rate 89 06/14/17 11:57 Respiratory Rate 20 06/14/17 11:57 Blood Pressure 125/85 H 06/14/17 11:57 O2 Sat (%) 92 06/14/17 11:57 O2 Delivery Mode Nasal Cannula O2 (L/minute) 2 Allergies/Adverse Reactions: No Known Allergies Allergy (Verified 03/09/17 13:18) Home Medications: Medication Instructions Recorded NK [No Known Home Meds] 06/14/17 Departure - Departure Disposition: [facility] Inpatient Acute Clinical Impression: Pneumonia Qualifiers: Pneumonia type: due to unspecified organism Laterality: left Lung location: lower lobe of lung Qualified Code(s): J18.1 - Lobar pneumonia, unspecified organism Condition: Fair Report Scribed for: Mikhail Dixon Report Scribed by: Arianna Johnson Date of Report: 06/14/17 Time of Report: 12:50 Physician Review and Approval Statement: Portions of this note were transcribed by a medical care administrator. I personally performed the history, physical exam, and medical decision-making; and confirmed the accuracy of the information in the transcribed note.
[2017-06-14 12:57] LABS: % IMMATURE GRANULYOCYTES 0.3 % (0.0-1.1); ABSOLUTE IMMATURE GRANULOCYTES 0.01 10^3/uL (0.00-0.10); ADD DIFF? NO; ADD MORPH? NO; ADD SCAN? NO; ATYPICAL LYMPHOCYTE FLAG 10 (0-99); FRAGMENT RBC FLAG 0 (0-99); HEMATOCRIT 37.6 % (40.0-51.0); HEMOGLOBIN 13.1 g/dL (13.7-17.5); LEFT SHIFT FLG 0 (0-99); LIPEMIA HEMOLYSIS FLAG 90 (0-99); MEAN CELL HEMOGLOBIN 35.5 pg (27.9-34.1); MEAN CELL HEMOGLOBIN CONCENTR. 34.8 g/dL (32.4-36.7); MEAN CELL VOLUME 101.9 fL (81.5-99.8); MEAN PLATELET VOLUME 10.9 fL (8.7-11.7); PLATELET CLUMPS FLAG 20 (0-99); RED BLOOD CELL COUNT 3.69 10^6/uL (4.40-6.38)
[2017-06-14 13:03] LABS: CARBON DIOXIDE 24 mEq/l (22-31); CHLORIDE 109 mEq/L (97-110); POTASSIUM 3.6 mEq/L (3.5-5.2); SODIUM 144 mEq/L (134-144)
[2017-06-14 13:04] LABS: ALANINE AMINOTRANSFERASE 58 IU/L (21-72); ALBUMIN 3.2 g/dL (3.5-5.0); ALKALINE PHOSPHATASE 148 IU/L (38-126); ANION GAP 11 mEq/L (8-16); ASPARTATE AMINOTRANSFERASE 116 IU/L (17-59); BILIRUBIN,TOTAL 1.9 mg/dL (0.1-1.4); CREATININE 0.6 mg/dL (0.7-1.3); GLOMERULAR FILTRATION RATE > 60; GLUCOSE 85 mg/dL (70-100); TOTAL PROTEIN 7.2 g/dL (6.3-8.2)
[2017-06-14 13:08] LABS: PLATELET COUNT 35 10^3/uL (150-400)
[2017-06-14 13:36] LABS: PLATELET ESTIMATE DECREASED (ADEQ)
[2017-06-14] MEDS ORDERED: ONDANSETRON 4 MG/2 ML VIAL IVP PRN (15:33)
[2017-06-14] MEDS ORDERED: ACETAMINOPHEN 325 MG TAB PO PRN (15:33)
[2017-06-14] MEDS ORDERED: ALBUTEROL 3 ML DEYVIAL IH PRN (15:33)
[2017-06-14] MEDS ORDERED: ONDANSETRON DISINTEGRATING 4 MG TAB PO PRN (15:33)
--- NOTE | 2017-06-14 15:55 | PDGENHP ---
History and Physical - Chief Complaint SOB, cough - History of Present Illness 56 yo male with h/o alcohol abuse and homelessness presents to ED with cough and SOB. He reports having been hospitalized at [facility] 3-4 weeks ago for PNA and was discharged on Doxycycline and another atbx. He completed the atbx course and felt things improved for a few days, but he then developed worsening SOB. He reports a cough at baseline, which is now productive. He denies fevers, but does endorse fevers during prior hospitalization at [facility]. Has some mild chest tightness. He smokes cigarettes occasionally. Drinks >6 beers per day. Endorses some mild etoh withdrawal, but denies seizure. Last drink 8/16 PM. No headaches, vision changes, abdominal pain, N/V, bowel or bladder symptoms. In the ED, CXR showed LLL PNA. Blood cultures were drawn and he was given IV Ceftriaxone. He is admitted for further management. History Information - Allergies/Home Medication List Allergies/Adverse Reactions: No Known Allergies Allergy (Verified 03/09/17 13:18) Home Medications: NK [No Known Home Meds] 06/14/17 [Last Taken Unknown] I have personally reviewed and updated: family history, medical history, social history, surgical history - Past Medical History COPD, liver disease Additional medical history: valvular heart disease, mod , mild MR, hepatitis C diagnosed in late , alcoholic liver disease, alcohol abuse, thrombocytopenia - Surgical History Reports: hernia repair - Family History Positive for: non-pertinent - Social History Smoking Status: Current some day smoker Tobacco Use: Cigarettes Alcohol Use: Other (at least a 6 pack of beer a day) Drug Use: None Additional social history: Homeless, works as a apprentice stylist, but doesn't make enough money to secure housing Review of Systems ROS: 10pt was reviewed & negative except for what was stated in HPI & below Physical Exam Temp Pulse Resp BP Pulse Ox 36.7 C 81 24 H 135/80 H 93 06/14/17 15:15 06/14/17 15:15 06/14/17 15:15 06/14/17 15:15 06/14/17 15:15 O2 (L/minute) 2 Constitutional: no apparent distress Eyes: PERRL Ears, Nose, Mouth, Throat: moist mucous membranes Cardiovascular: regular rate and rhythym, systolic murmur Respiratory: no respiratory distress, other (LLL crackles) Gastrointestinal: normoactive bowel sounds, other (mild RUQ TTP, no r/r/g, +BS) Skin: warm Musculoskeletal: full muscle strength Neurologic: AAOx3 Psychiatric: interacting appropriately Lab Data & Imaging Review 06/14/17 11:45 06/14/17 11:45 WBC 2.97 10^3/uL (3.80-9.50) L 06/14/17 11:45 RBC 3.69 10^6/uL (4.40-6.38) L 06/14/17 11:45 Hgb 13.1 g/dL (13.7-17.5) L 06/14/17 11:45 Hct 37.6 % (40.0-51.0) L 06/14/17 11:45 MCV 101.9 fL (81.5-99.8) H 06/14/17 11:45 MCH 35.5 pg (27.9-34.1) H 06/14/17 11:45 MCHC 34.8 g/dL (32.4-36.7) 06/14/17 11:45 RDW 14.0 % (11.5-15.2) 06/14/17 11:45 Plt Count 35 10^3/uL (150-400) L 06/14/17 11:45 MPV 10.9 fL (8.7-11.7) 06/14/17 11:45 Neut % (Auto) 61.7 % (39.3-74.2) 06/14/17 11:45 Lymph % (Auto) 26.6 % (15.0-45.0) 06/14/17 11:45 Pratt % (Auto) 8.4 % (4.5-13.0) 06/14/17 11:45 Eos % (Auto) 2.0 % (0.6-7.6) 06/14/17 11:45 Baso % (Auto) 1.0 % (0.3-1.7) 06/14/17 11:45 Nucleat RBC Rel Count 0.0 % (0.0-0.2) 06/14/17 11:45 Absolute Neuts (auto) 1.83 10^3/uL (1.70-6.50) 06/14/17 11:45 Absolute Lymphs (auto) 0.79 10^3/uL (1.00-3.00) L 06/14/17 11:45 Absolute Monos (auto) 0.25 10^3/uL (0.30-0.80) L 06/14/17 11:45 Absolute Eos (auto) 0.06 10^3/uL (0.03-0.40) 06/14/17 11:45 Absolute Basos (auto) 0.03 10^3/uL (0.02-0.10) 06/14/17 11:45 Absolute Nucleated RBC 0.00 10^3/uL (0-0.01) 06/14/17 11:45 Immature Gran % 0.3 % (0.0-1.1) 06/14/17 11:45 Immature Gran # 0.01 10^3/uL (0.00-0.10) 06/14/17 11:45 Platelet Estimate DECREASED (ADEQ) L 06/14/17 11:45 VBG Lactic Acid 1.6 mmol/L (0.7-2.1) 06/14/17 13:52 Sodium 144 mEq/L (134-144) 06/14/17 11:45 Potassium 3.6 mEq/L (3.5-5.2) 06/14/17 11:45 Chloride 109 mEq/L (97-110) 06/14/17 11:45 Carbon Dioxide 24 mEq/l (22-31) 06/14/17 11:45 Anion Gap 11 mEq/L (8-16) 06/14/17 11:45 BUN 6 mg/dL (7-23) L 06/14/17 11:45 Creatinine 0.6 mg/dL (0.7-1.3) L 06/14/17 11:45 Estimated GFR > 60 06/14/17 11:45 Glucose 85 mg/dL (70-100) 06/14/17 11:45 Calcium 8.0 mg/dL (8.5-10.4) L 06/14/17 11:45 Total Bilirubin 1.9 mg/dL (0.1-1.4) H 06/14/17 11:45 AST 116 IU/L (17-59) H 06/14/17 11:45 ALT 58 IU/L (21-72) 06/14/17 11:45 Alkaline Phosphatase 148 IU/L (38-126) H 06/14/17 11:45 Total Protein 7.2 g/dL (6.3-8.2) 06/14/17 11:45 Albumin 3.2 g/dL (3.5-5.0) L 06/14/17 11:45 Visualized and Interpreted Chest x-ray results: Yes Chest X-Ray results: infiltrate Assessment & Plan Assessment: Acute hypoxemic respiratory failure secondary to PNA and suspected underlying COPD - See below for PNA plan. Regarding COPD, pt states this has been diagnosed in the past, but he is not currently on any medications. Requiring 2 LPM here. -atbx as below -QID duonebs, prn albuterol nebs -no wheezing, no indication for steroids at this time -wean O2 as able Pneumonia (Acute) - LLL PNA on CXR, unclear if this represents residual dz from recent PNA diagnosed and treated at [facility] or if this is an incompletely treated PNA. He is afebrile. No e/o sepsis, lactate normal. BCx's pending. -Will treat for now with Ceftriaxone/Azithromycin -send PCT -send sputum culture -send urine pneumococcal and legionella Ags -obtain records from [facility] Alcohol abuse - +H/O withdrawal, but no seizures. Pt wishes to abstain from alcohol. -CIWA, prn bzd's for w/d symptoms Elevated LFT's - Alcoholic liver disease likely. He also has a h/o Hep C. LFT' s are not significantly changed from prior. No indication for immediate imaging. -consider u/s if LFT's on the rise or clinical condition changes, will defer for now -outpt f/u recommended Valvular heart disease - prior echo reviewed, mod noted, along with mild MR and TR. No e/o HF. -outpt f/u with [facility] Pancytopenia - Chronic, likely BM suppression from etoh. No e/o bleeding. -follow Homelessness - CM consult DVT PPLX - pharm contraindicated given low plts, SCD's Full code Dispo - obs
[2017-06-14] MEDS ORDERED: LORazepam 2 MG/ML INJ IVP PRN (16:01)
[2017-06-14] MEDS: AZITHROMYCIN IV 500 MG in D5W 250 ML IV SCH (16:08)
[2017-06-14] MEDS: IPRATROPIUM/ALBUTEROL 3 ML DEYVIAL IH SCH ×2 (17:17→21:43)
[2017-06-14] MEDS: LORazepam 1 MG TAB PO PRN (21:03)
[2017-06-15] MEDS: LORazepam 1 MG TAB PO PRN ×2 (04:59→21:57)
[2017-06-15 05:08] LABS: % IMMATURE GRANULYOCYTES 0.4 % (0.0-1.1); ABSOLUTE IMMATURE GRANULOCYTES 0.01 10^3/uL (0.00-0.10); ADD DIFF? NO; ADD MORPH? NO; ADD SCAN? NO; ATYPICAL LYMPHOCYTE FLAG 0 (0-99); FRAGMENT RBC FLAG 0 (0-99); HEMOGLOBIN 12.5 g/dL (13.7-17.5); LEFT SHIFT FLG 0 (0-99); LIPEMIA HEMOLYSIS FLAG 90 (0-99); MEAN CELL HEMOGLOBIN 35.5 pg (27.9-34.1); MEAN CELL HEMOGLOBIN CONCENTR. 34.7 g/dL (32.4-36.7); MEAN CELL VOLUME 102.3 fL (81.5-99.8); MEAN PLATELET VOLUME 10.8 fL (8.7-11.7); PLATELET CLUMPS FLAG 0 (0-99); RED BLOOD CELL COUNT 3.52 10^6/uL (4.40-6.38); RED CELL DISTRIBUTION WIDTH 13.8 % (11.5-15.2)
[2017-06-15 05:18] LABS: PLATELET COUNT 24 10^3/uL (150-400)
[2017-06-15 05:21] LABS: ALANINE AMINOTRANSFERASE 53 IU/L (21-72); ALBUMIN 2.8 g/dL (3.5-5.0); ALKALINE PHOSPHATASE 132 IU/L (38-126); ANION GAP 7 mEq/L (8-16); ASPARTATE AMINOTRANSFERASE 98 IU/L (17-59); BILIRUBIN,TOTAL 2.7 mg/dL (0.1-1.4); CALCIUM 8.1 mg/dL (8.5-10.4); CARBON DIOXIDE 25 mEq/l (22-31); CHLORIDE 105 mEq/L (97-110); CREATININE 0.6 mg/dL (0.7-1.3); GLOMERULAR FILTRATION RATE > 60; GLUCOSE 87 mg/dL (70-100); MAGNESIUM 1.6 mg/dL (1.6-2.3); POTASSIUM 3.7 mEq/L (3.5-5.2); SODIUM 137 mEq/L (134-144); TOTAL PROTEIN 6.6 g/dL (6.3-8.2)
[2017-06-15] MEDS: IPRATROPIUM/ALBUTEROL 3 ML DEYVIAL IH SCH ×4 (05:22→21:36)
[2017-06-15 05:28] LABS: BILIRUBIN-CONJUGATED 0.7 mg/dL (0.0-0.5)
[2017-06-15 05:37] LABS: PLATELET ESTIMATE DECREASED (ADEQ)
[2017-06-15] MEDS: FOLIC ACID 1 MG TAB PO SCH (09:07)
[2017-06-15] MEDS: MULTIVITAMINS 1 EACH TAB PO SCH (09:07)
[2017-06-15] MEDS: AZITHROMYCIN IV 500 MG in D5W 250 ML IV SCH (10:50)
--- NOTE | 2017-06-15 12:40 | HOSPPROG ---
Hospitalist Progress Note Assessment/Plan: 56y male with c/o SOB. First encounter, chart reviewed. D/W Dr Oliveira. Acute hypoxemic respiratory failure secondary to PNA and suspected underlying COPD - See below for PNA plan. Regarding COPD, pt states this has been diagnosed in the past, but he is not currently on any medications. -on RA now -atbx as below -QID duonebs, prn albuterol nebs -no wheezing, no indication for steroids at this time Pneumonia (Acute) - LLL PNA on CXR, unclear if this represents residual dz from recent PNA diagnosed and treated at [facility] or if this is an incompletely treated PNA. He is afebrile. No e/o sepsis, lactate normal. BCx's pending. -Will treat for now with Ceftriaxone/Azithromycin -send PCT -send sputum culture -send urine pneumococcal and legionella Ags -obtain records from [facility] Alcohol abuse - +H/O withdrawal, but no seizures. -CIWA, prn bzd's for w/d symptoms -will provide etoh if pt wishes to not go through withdrawl, D/W RN Elevated LFT's - Alcoholic liver disease likely. He also has a h/o Hep C. LFT' s are not significantly changed from prior. No indication for immediate imaging. -consider u/s if LFT's on the rise or clinical condition changes, will defer for now -outpt f/u recommended Valvular heart disease - prior echo reviewed, mod noted, along with mild MR and TR. No e/o HF. -outpt f/u with [facility] Pancytopenia - Chronic, likely BM suppression from etoh. No e/o bleeding. -follow Homelessness - CM consult DVT PPLX - pharm contraindicated given low plts, SCD's Full code Dispo - change to inpt status requires another night in hospital [place] in am if stable Subjective: Feeling tired. Feels a bit SOB. Objective: Vital Signs Temp Pulse Resp BP Pulse Ox 36.9 C 84 20 146/92 H 92 06/15/17 12:00 06/15/17 12:00 06/15/17 12:00 06/15/17 12:00 06/15/17 12:00 Laboratory Results 06/15/17 04:25 06/15/17 04:25 06/14/17 06/15/1706/16/17 05:59 05:59 05:59 Intake Total 350 Output Total 1100 Balance -750 - Physical Exam Constitutional: no apparent distress, appears nourished, not in pain Eyes: PERRL, anicteric sclera, EOMI Ears, Nose, Mouth, Throat: moist mucous membranes, hearing normal, ears appear normal Cardiovascular: regular rate and rhythym, No JVD, No edema Respiratory: no respiratory distress, no rales or rhonchi, reduced air movement Gastrointestinal: normoactive bowel sounds, No tenderness, No ascites Skin: warm, normal color, No erythema Musculoskeletal: normal joint ROM, no joint effusions, generalized weakness Neurologic: AAOx3 Psychiatric: not anxious, not encephalopathic, poor insight, poor judgement ICD10 Worksheet Patient Problems: Problems Problem Status Onset Alcoholic intoxication Acute Aortic stenosis due to bicuspid aortic valve Acute Pneumonia Acute
[2017-06-16 05:34] LABS: MAGNESIUM 1.7 mg/dL (1.6-2.3)
[2017-06-16] MEDS: IPRATROPIUM/ALBUTEROL 3 ML DEYVIAL IH SCH ×4 (06:27→21:10)
--- NOTE | 2017-06-16 08:41 | HOSPPROG ---
Hospitalist Progress Note Assessment/Plan: 56y male PMH Hep C in , BAV/mod , EtOH (6 beers daily), tobacco abuse, presents with c/o SOB/cough. Admitted at [facility] 3-4 weeks ago with similar complaints and diagnosed with pna then. Reports being d/c'd on Doxy +1 other abx. First encounter, chart reviewed. D/W Dr Andrea. CXR personally interpreted Acute hypoxemic respiratory failure secondary to PNA and suspected underlying COPD - See below for PNA plan. Regarding COPD, pt states this has been diagnosed in the past, but he is not currently on any medications. -on RA now with sat 93% -abx as below -QID duonebs, prn albuterol nebs -no wheezing, no indication for steroids at this time Pneumonia (Acute) - LLL PNA on CXR, unclear if this represents residual dz from recent PNA diagnosed and treated at [facility] or if this is an incompletely treated PNA. He is afebrile. No e/o sepsis, lactate normal. BCx's pending. -Will treat for now with Ceftriaxone/Azithromycin -PCT neg -await sputum culture -send urine pneumococcal and legionella Ags -obtain records from [facility] Alcohol abuse - +H/O withdrawal, but no seizures. -CIWA, prn bzd's for w/d symptoms -will provide etoh if pt wishes to not go through withdrawal, D/W RN Elevated LFT's - Alcoholic liver disease likely. He also has a h/o Hep C. LFT' s are not significantly changed from prior. No indication for immediate imaging. -consider u/s if LFT's on the rise or clinical condition changes, will defer for now -outpt f/u recommended Valvular heart disease with BAV/ - no s/o CHF, angina, or syncope -outpt f/u with [facility] Pancytopenia - Chronic, likely BM suppression from etoh. No e/o bleeding. -will need O/P f/u [facility] - has seen CM and declines resources DVT PPLX - pharm contraindicated given low plts, SCD's Full code Dispo - change to inpt status requires another night in hospital [place] in am if stable Subjective: Feeling febrile, coughing, chills, KITCHEN. No cp or dyspnea. Objective: Vital Signs Temp Pulse Resp BP Pulse Ox 98.1 F 86 18 129/89 H 93 06/16/17 08:00 06/16/17 08:00 06/16/17 08:00 06/16/17 08:00 06/16/17 08:00 06/15/17 06/16/17 06/17/17 05:59 05:59 05:59 Intake Total 300 Balance 300 - Pending Discharge Pending Discharge Within 24 Hours: Yes Pending Discharge Within 48 Hours: No Pending Discharge Date: 06/17/17 Pending Discharge Time: 11:00 - Physical Exam Constitutional: no apparent distress Eyes: PERRL Ears, Nose, Mouth, Throat: moist mucous membranes Cardiovascular: regular rate and rhythym, systolic murmur Respiratory: reduced air movement, bronchial breath sounds, No expiratory wheeze Gastrointestinal: normoactive bowel sounds, soft, non-tender abdomen, no palpable masses Skin: warm, normal color Neurologic: AAOx3 Psychiatric: interacting appropriately ICD10 Worksheet Patient Problems: Problems Problem Status Onset Pneumonia Acute Alcoholic intoxication Acute Aortic stenosis due to bicuspid aortic valve Acute
[2017-06-16] MEDS: MULTIVITAMINS 1 EACH TAB PO SCH (08:56)
[2017-06-16] MEDS: FOLIC ACID 1 MG TAB PO SCH (08:56)
[2017-06-16] MEDS: AZITHROMYCIN IV 500 MG in D5W 250 ML IV SCH (09:54)
[2017-06-16] MEDS: LORazepam 1 MG TAB PO PRN (20:57)
[2017-06-17] MEDS: LORazepam 1 MG TAB PO PRN (03:48)
[2017-06-17 05:03] LABS: % IMMATURE GRANULYOCYTES 0.4 % (0.0-1.1); ABSOLUTE IMMATURE GRANULOCYTES 0.01 10^3/uL (0.00-0.10); ADD DIFF? NO; ADD MORPH? NO; ADD SCAN? NO; ATYPICAL LYMPHOCYTE FLAG 0 (0-99); FRAGMENT RBC FLAG 0 (0-99); HEMATOCRIT 35.5 % (40.0-51.0); HEMOGLOBIN 12.4 g/dL (13.7-17.5); LEFT SHIFT FLG 0 (0-99); LIPEMIA HEMOLYSIS FLAG 90 (0-99); MEAN CELL HEMOGLOBIN CONCENTR. 34.9 g/dL (32.4-36.7); MEAN CELL VOLUME 103.2 fL (81.5-99.8); MEAN PLATELET VOLUME 11.6 fL (8.7-11.7); PLATELET CLUMPS FLAG 10 (0-99); RED BLOOD CELL COUNT 3.44 10^6/uL (4.40-6.38); RED CELL DISTRIBUTION WIDTH 13.9 % (11.5-15.2)
[2017-06-17 05:05] LABS: PLATELET COUNT 30 10^3/uL (150-400)
[2017-06-17 05:15] LABS: MAGNESIUM 1.8 mg/dL (1.6-2.3)
[2017-06-17 05:28] LABS: PLATELET ESTIMATE DECREASED (ADEQ)
[2017-06-17] MEDS: IPRATROPIUM/ALBUTEROL 3 ML DEYVIAL IH SCH (06:06)
[2017-06-17 07:57] VITALS: BP 120/85; PULSE 75; RESP 16; TEMP 98.1; O2SAT 90
[2017-06-17] MEDS ORDERED: THIAMINE HCL 100 MG TAB PO SCH (09:00)
[2017-06-17] MEDS: FOLIC ACID 1 MG TAB PO SCH (09:11)
[2017-06-17] MEDS: MULTIVITAMINS 1 EACH TAB PO SCH (09:11)
[2017-06-17] MEDS: AZITHROMYCIN IV 500 MG in D5W 250 ML IV SCH (12:03)
--- NOTE | 2017-06-17 13:57 | GDS ---
[f rep st] DISCHARGE SUMMARY DISCHARGE DIAGNOSES: 1. Acute hypoxemic respiratory failure secondary to pneumonia and suspected underlying chronic obst ructive pulmonary disease. 2. Acute left lower lobe pneumonia. 3. Alcohol abuse. 4. History of hepatitis C, with elevated LFTs in this admission. 5. Known bicuspid aortic valve with moderate aortic stenosis, based on last echo in October of 2016 . 6. Pancytopenia, likely related to bone marrow suppression in the setting of alcohol. 7. Homelessness. 8. Tobacco abuse. PROCEDURES: Chest x-ray. BRIEF HISTORY: Please see dictated H and P for complete details. In brief, the patient is a 56-yea r-old, homeless male with ongoing tobacco abuse, alcohol intake of 6 drinks daily with suspected und erlying COPD. He was admitted at [facility] ([place], [place]) about 3-4 weeks ago for pneumonia and was treated with antibiotics. He initially felt better but re-presented to [facility] with worsening shortness of breath and cough. He was initially hypoxic but O2 saturation is 93%. H e has been treated with breathing treatments. He is being discharged to home with a prescription fo r Levaquin for the next 7 days. HOSPITAL COURSE BY PROBLEM: 1. Acute hypoxic respiratory failure. He is saturating well on room air. 2. Pneumonia. He is afebrile and his white count is within normal limits. His procalcitonin level is low. Sputum culture showed mixed oropharyngeal arik. Blood cultures are negative. He will be discharged with p.o. Levaquin. He is to follow up with [facility]. 3. Alcohol abuse. He has scored low on C1. 4. Elevated LFTs, likely related to hep C. He will be referred to Infectious Disease for followup on this. 5. Valvular heart disease. He has a bicuspid aortic valve with moderate . He will require repea t echo in October. Instructions were given to him on how to schedule this. 6. Pancytopenia he is to follow up at [facility] for this. RESULTS PENDING: None. DIET: As tolerated. ACTIVITY: As tolerated. DISCHARGE MEDICATIONS: He is being discharged on Levaquin 750 mg p.o. daily. He is also being give n a prescription for albuterol inhaler. He may take Tylenol as needed. DISCHARGE INSTRUCTIONS: 1. Follow up with [facility] for routine care. 2. Follow up with [facility] for hepatitis C treatment. 3. Follow up with [facility] for followup on aortic stenosis. /[id number]/MODL
== END 2017-06-17 11:45 | disposition home or self-care (01) | DRG 193 ==
LOC: EDUNIT# → F3E 15:00 → OBSVTOIN 06-15 14:49
PROVIDERS: ADMIT Hospitalist; ATTEND Hospitalist
DX: J18.8 Other pneumonia, unspecified organism (principal); J96.01 Acute respiratory failure with hypoxia; D61.818 Other pancytopenia; J44.9 Chronic obstructive pulmonary disease, unspecified; F10.10 Alcohol abuse, uncomplicated; B19.20 Unspecified viral hepatitis C without hepatic coma; Z95.3 Presence of xenogenic heart valve; Z72.0 Tobacco use; Z59.0 Homelessness
CPT/HCPCS: 87449-90; 96374; 97161-GP; G0378; J0456; J0696

== ENCOUNTER 2017-12-19 05:20 | Emergency (ER) | payer MEDICAID ==
--- NOTE | 2017-12-19 05:30 | EDPHY ---
H & P HPI/ROS: Chief Complaint: Med clearance, alcohol intoxication, head pain HPI: 57-year-old male being brought in by police for medical clearance. Patient has been drinking this morning. Patient states that he fell down forward on the floor his head on linoleum. He did not have a loss of consciousness. He remembers his girlfriend asked him if he is okay. This happened several hours ago. He is complaining of pain in the right side of his forehead.. No nausea or vomiting. No vision or hearing changes. No neck pain. No numbness or weakness. Patient admits to drinking multiple alcoholic beverages. ROS: 10 point Review of Systems is negative except as noted in the HPI. PMH: COPD Social History: Positive smoking, positive alcohol, denies other drug use Family History: non-contributory Physical Exam: Gen: Awake, Alert, Airway Intact HEENT: Head: Mild tenderness of his right forehead, no step-offs or deformities. Is mild edema, no significant ecchymosis Eyes: PERRLA, EOMI Nose: No epistaxis Mouth: Normal dentition, Airway patent Face: No deformity Neck: non-tender, no stepoff, Full ROM without pain Chest: non-tender, lungs CTA Heart: normal heart tones Abd: soft, non-tender, atraumatic Pelvis: non-tender, stable to AP and Lateral compression Back: atraumatic, no midline tenderness Ext: atramatic, full ROM Skin: no rash Neuro: CN II-XII intact, Strength 5/5 in all extremities, sensation intact in all extremities - Medical/Surgical History Hx Asthma: No Hx Chronic Respiratory Disease: Yes Hx Diabetes: No Hx Cardiac Disease: Yes Hx Renal Disease: No Hx Cirrhosis: Yes Hx Alcoholism: Yes Hx HIV/AIDS: No Hx Splenectomy or Spleen Trauma: No Other PMH: emphysema, hep c, heart murmur (to be seen by [facility]), hernia repair, tonsillectomy, cyst removal from knee, PNA, aortic bicuspid valve, needs replacement but hasnt done, cirrhosis - Social History Smoking Status: Current some day smoker Allergies/Adverse Reactions: No Known Allergies Allergy (Verified 03/09/17 13:18) Home Medications: Medication Instructions Recorded Acetaminophen [Tylenol 325mg (*)] 650 mg PO Q4HRS PRN #0 tab 06/17/17 Ipratropium/Albuterol [Duoneb (*)] 3 ml IH QID #0 deyvial 06/17/17 levOFLOXACIN [levAQUIN (*)] 750 mg PO DAILY 7 Days tab 06/17/17 Medical Decision Making ED Course/Re-evaluation: 57-year-old male status post fall while intoxicated. He has a very mild forehead hematoma. Does not have a significant mechanism of injury. He is awake alert and appropriate. Did not have a loss of consciousness. He is completely neurologically intact. No indication for CT scanning at this time. Is patient is be discharged in the custody of police. Departure - Departure Disposition: Law Enforcement/Court/Custodial Clinical Impression: Alcohol intoxication, Traumatic hematoma of forehead Condition: Good Instructions: Alcohol Intoxication (ED), Scalp Contusion in Adults (ED) Additional Instructions: Return to the emergency department for increasing headache, worsening nausea vomiting, worsening confusion, or any other concerns. MEDICALLY CLEAR FOR USP
[2017-12-19 05:34] VITALS: BP 129/81; PULSE 105; RESP 18; TEMP 98.1
[2017-12-19 05:43] VITALS: O2SAT 93
== END 2017-12-19 06:02 ==
DX: S00.83XA Contusion of other part of head, initial encounter (principal); F10.129 Alcohol abuse with intoxication, unspecified; F17.200 Nicotine dependence, unspecified, uncomplicated; J44.9 Chronic obstructive pulmonary disease, unspecified; W18.39XA Other fall on same level, initial encounter; Y93.89 Activity, other specified